=== PATIENT | female | born 1980 | race American Indian/Alaskan Native ===

== ENCOUNTER 2019-08-19 05:34 | Emergency (ER) | payer OTHER ==
--- NOTE | 2019-08-19 06:52 | Emergency Department Report ---
ED Chest Pain HPI - General Chief Complaint: Chest Pain Stated Complaint: CHEST PAIN Time Seen by Provider: 08/19/19 06:49 Source: patient Mode of arrival: Ambulatory Limitations: No Limitations - History of Present Illness Initial Comments: This is a 39 year old female who is very emotionally labile. She states that about 10 PM last night she developed a pain in her left to mid chest that feels like food got stuck. However she was not eating at the time. She does not have any difficulty in swallowing. She is a very limited historian and poorly c ooperative due to the above. She is quite anxious. She denies a family history of CAD or the VTE. She does smoke. She does not take a control pill. She states that she was recently placed on zonisamide. She states the other day she "had 8 seizures" but did not see a physician. She states she is never got to the emergency department for chest pain before. However the record does show a visit for chest pain in 2014 with outpatient disposition. MD Complaint: chest pain -: unknown Onset: during rest Pain Location: substernal, left chest Pain Radiation: none Severity: moderate, severe Quality: other Consistency: constant Improves With: nothing Worsens With: nothing re: other (anxiety) Other Symptoms: denies: cough, fever, syncope Treatments Prior to Arrival: none - Related Data Home Medications Medication Instructions Recorded Confirmed Last Taken Zonisamide 1 cap PO QHS 08/19/19 08/19/19 Unknown levETIRAcetam [Keppra TAB] 2 tab PO BID 08/19/19 08/19/19 Unknown Allergies Allergy/AdvReac Type Severity Reaction Status Date / Time No Known Allergies Allergy Verified 08/19/19 05:36 Heart Score - HEART Score History: Slightly suspicious EKG: Non-specific Age: < 45 Risk factors: No known risk factors Troponin: < normal limit HEART Score: 1 - Critical Actions Critical Actions: 0-3 pts:0.9-1.7%risk of adverse cardiac event.Candidate for discharge ED Review of Systems ROS: Stated complaint: CHEST PAIN Other details as noted in HPI Constitutional: denies: chills, fever Eyes: denies: eye pain, eye discharge, vision change ENT: denies: ear pain, throat pain Respiratory: denies: cough, shortness of breath, wheezing Cardiovascular: chest pain. denies: palpitations Endocrine: no symptoms reported Gastrointestinal: denies: abdominal pain, nausea, diarrhea Genitourinary: denies: urgency, dysuria, discharge Musculoskeletal: denies: back pain, joint swelling, arthralgia Skin: denies: rash, lesions Neurological: denies: headache, weakness, paresthesias Psychiatric: anxiety. denies: depression Hematological/Lymphatic: denies: easy bleeding, easy bruising ED Past Medical Hx - Past Medical History Previous Medical History?: Yes Hx Seizures: Yes - Surgical History Past Surgical History?: Yes Additional Surgical History: Tubal Ligation - Social History Smoking Status: Current Every Day Smoker Substance Use Type: None - Medications Home Medications: Home Medications Medication Instructions Recorded Confirmed Last Taken Type Zonisamide 1 cap PO QHS 08/19/19 08/19/19 Unknown History levETIRAcetam [Keppra TAB] 2 tab PO BID 08/19/19 08/19/19 Unknown History ED Physical Exam - General Limitations: No Limitations General appearance: in no apparent distress, anxious - Head Head exam: Present: atraumatic, normocephalic - Eye Eye exam: Present: normal appearance - ENT ENT exam: Present: mucous membranes moist - Neck Neck exam: Present: normal inspection - Respiratory Respiratory exam: Present: normal lung sounds bilaterally. Absent: respiratory distress - Cardiovascular Cardiovascular Exam: Present: normal rhythm, tachycardia. Absent: systolic murmur, diastolic murmur, rubs, gallop - GI/Abdominal GI/Abdominal exam: Present: soft, normal bowel sounds. Absent: distended, tenderness, guarding, rebound, rigid - Extremities Exam Extremities exam: Present: normal inspection, normal capillary refill. Absent: pedal edema, joint swelling, calf tenderness - Back Exam Back exam: Present: normal inspection - Neurological Exam Neurological exam: Present: alert, oriented X3, CN II-XII intact. Absent: motor sensory deficit - Psychiatric Psychiatric exam: Present: normal affect, normal mood, anxious - Skin Skin exam: Present: warm, dry, intact, normal color. Absent: rash ED Course Vital Signs 08/19/19 08/19/19 08/19/19 05:37 06:43 07:44 Temperature 98.7 F 98.7 F Pulse Rate 127 H 104 H 106 H Respiratory 18 16 14 Rate Blood Pressure 183/89 Blood Pressure 153/81 124/73 [Left] O2 Sat by Pulse 97 100 100 Oximetry 08/19/19 08/19/19 10:25 12:00 Temperature 98.1 F Pulse Rate 74 87 Respiratory 16 16 Rate Blood Pressure Blood Pressure 122/71 121/76 [Left] O2 Sat by Pulse 100 100 Oximetry - Reevaluation(s) Reevaluation #1: Respirations chest pain completely resolved with medication and did not recur. She stated she was ready for discharge. She is observed for quite some time and had no supplemental symptoms. 08/19/19 11:33 Reevaluation #2: Patient was found to have rhabdomyolysis. I believe this is likely secondary to zonisamide. She will be given 2 liters of fluid and the medication will be discontinued. She informs me that she wanted to stop the medicine anyway because it wasn't making her feel good. 08/19/19 11:41 DEYA score - Deya Score Age > 65: (0) No Aspirin use within the Past 7 Days: (0) No 3 or more CAD Risk Factors: (0) No 2 or more Angina events in past 24 hrs: (0) No Known CAD with more than 50% Stenosis: (0) No Elevated Cardiac Markers: (0) No ST Deviation Greater than 0.5mm: (0) No DEYA Score: 0 ED Medical Decision Making - Lab Data Result diagrams: 08/19/19 07:21 08/19/19 07:21 Laboratory Results - last 24 hr 08/19/19 08/19/19 08/19/19 07:21 07:21 07:21 WBC 10.9 RBC 4.51 Hgb 13.6 Hct 41.9 MCV 93 MCH 30 MCHC 33 RDW 14.1 Plt Count 345 Lymph % (Auto) 25.6 [place] % (Auto) 4.4 Eos % (Auto) 0.6 Baso % (Auto) 0.6 Lymph # 2.8 [place] # 0.5 Eos # 0.1 Baso # 0.1 Seg Neutrophils % 68.8 Seg Neutrophils # 7.5 PT 12.9 INR 1.00 APTT 25.6 D-Dimer 258.51 H Sodium 143 Potassium 4.2 Chloride 104.0 Carbon Dioxide 25 Anion Gap 18 BUN 4 L Creatinine 0.7 Estimated GFR > 60 BUN/Creatinine Ratio 6 Glucose 119 H Lactic Acid Calcium 9.7 CK-MB (CK-2) Troponin T < 0.010 NT-Pro-B Natriuret Pep Lipase 08/19/19 08/19/19 08/19/19 07:21 07:21 07:21 WBC RBC Hgb Hct MCV MCH MCHC RDW Plt Count Lymph % (Auto) [place] % (Auto) Eos % (Auto) Baso % (Auto) Lymph # [place] # Eos # Baso # Seg Neutrophils % Seg Neutrophils # PT INR APTT D-Dimer Sodium Potassium Chloride Carbon Dioxide Anion Gap BUN Creatinine Estimated GFR BUN/Creatinine Ratio Glucose Lactic Acid 1.40 Calcium CK-MB (CK-2) 1.3 Troponin T NT-Pro-B Natriuret Pep 18.23 Lipase 25 Laboratory Results - last 24 hr 08/19/19 08/19/19 08/19/19 07:21 07:21 07:21 WBC 10.9 RBC 4.51 Hgb 13.6 Hct 41.9 MCV 93 MCH 30 MCHC 33 RDW 14.1 Plt Count 345 Lymph % (Auto) 25.6 [place] % (Auto) 4.4 Eos % (Auto) 0.6 Baso % (Auto) 0.6 Lymph # 2.8 [place] # 0.5 Eos # 0.1 Baso # 0.1 Seg Neutrophils % 68.8 Seg Neutrophils # 7.5 PT INR APTT D-Dimer Sodium 143 Potassium 4.2 Chloride 104.0 Carbon Dioxide 25 Anion Gap 18 BUN 4 L Creatinine 0.7 Estimated GFR > 60 BUN/Creatinine Ratio 6 Glucose 119 H Lactic Acid Calcium 9.7 Total Creatine Kinase CK-MB (CK-2) CK-MB (CK-2) Rel Index Troponin T < 0.010 NT-Pro-B Natriuret Pep Lipase HCG, Qual Negative Urine Color Urine Turbidity Urine pH Ur Specific [place] Urine Protein Urine Glucose (UA) Urine Ketones Urine Blood Urine Nitrite Urine Bilirubin Urine Urobilinogen Ur Leukocyte Esterase Urine WBC (Auto) Urine RBC (Auto) U Epithel Cells (Auto) Urine Bacteria (Auto) Urine Opiates Screen Urine Methadone Screen Ur Barbiturates Screen Ur Phencyclidine Scrn Ur Amphetamines Screen U Benzodiazepines Scrn Urine Cocaine Screen U Marijuana (THC) Screen Drugs of Abuse Note 08/19/19 08/19/19 08/19/19 07:21 07:21 07:21 WBC RBC Hgb Hct MCV MCH MCHC RDW Plt Count Lymph % (Auto) [place] % (Auto) Eos % (Auto) Baso % (Auto) Lymph # [place] # Eos # Baso # Seg Neutrophils % Seg Neutrophils # PT 12.9 INR 1.00 APTT 25.6 D-Dimer 258.51 H Sodium Potassium Chloride Carbon Dioxide Anion Gap BUN Creatinine Estimated GFR BUN/Creatinine Ratio Glucose Lactic Acid 1.40 Calcium Total Creatine Kinase CK-MB (CK-2) CK-MB (CK-2) Rel Index Troponin T NT-Pro-B Natriuret Pep Lipase 25 HCG, Qual Urine Color Urine Turbidity Urine pH Ur Specific [place] Urine Protein Urine Glucose (UA) Urine Ketones Urine Blood Urine Nitrite Urine Bilirubin Urine Urobilinogen Ur Leukocyte Esterase Urine WBC (Auto) Urine RBC (Auto) U Epithel Cells (Auto) Urine Bacteria (Auto) Urine Opiates Screen Urine Methadone Screen Ur Barbiturates Screen Ur Phencyclidine Scrn Ur Amphetamines Screen U Benzodiazepines Scrn Urine Cocaine Screen U Marijuana (THC) Screen Drugs of Abuse Note 08/19/19 08/19/19 08/19/19 07:21 07:54 07:54 WBC RBC Hgb Hct MCV MCH MCHC RDW Plt Count Lymph % (Auto) [place] % (Auto) Eos % (Auto) Baso % (Auto) Lymph # [place] # Eos # Baso # Seg Neutrophils % Seg Neutrophils # PT INR APTT D-Dimer Sodium Potassium Chloride Carbon Dioxide Anion Gap BUN Creatinine Estimated GFR BUN/Creatinine Ratio Glucose Lactic Acid Calcium Total Creatine Kinase 4109 H CK-MB (CK-2) 1.3 CK-MB (CK-2) Rel Index 0.0 Troponin T NT-Pro-B Natriuret Pep 18.23 Lipase HCG, Qual Urine Color Straw Urine Turbidity Clear Urine pH 9.0 H Ur Specific [place] 1.003 Urine Protein <15 mg/dl Urine Glucose (UA) Neg Urine Ketones Neg Urine Blood Neg Urine Nitrite Neg Urine Bilirubin Neg Urine Urobilinogen < 2.0 Ur Leukocyte Esterase Mod Urine WBC (Auto) 5.0 Urine RBC (Auto) 1.0 U Epithel Cells (Auto) 2.0 Urine Bacteria (Auto) 1+ Urine Opiates Screen Presumptive negative Urine Methadone Screen Presumptive negative Ur Barbiturates Screen Presumptive negative Ur Phencyclidine Scrn Presumptive negative Ur Amphetamines Screen Presumptive negative U Benzodiazepines Scrn Presumptive negative Urine Cocaine Screen Presumptive negative U Marijuana (THC) Screen Presumptive positive Drugs of Abuse Note Disclamer - EKG Data -: EKG Interpreted by Me EKG shows normal: sinus rhythm Rate: tachycardia - EKG Data Interpretation: nonspecific ST-T wave shawna, LVH (c), other (consider biatrial abn) Consider 08/19/19 06:51 Critical care attestation.: If time is entered above; I have spent that time in minutes in the direct care of this critically ill patient, excluding procedure time. ED Disposition Clinical Impression: Atypical chest pain Rhabdomyolysis Qualifiers: Rhabdomyolysis type: non-traumatic Qualified Code(s): M62.82 - Rhabdomyolysis Disposition: DC-01 TO HOME OR SELFCARE Is pt being admited?: No Does the pt Need Aspirin: No Condition: Stable Instructions: Chest Pain (ED), Rhabdomyolysis (ED) Additional Instructions: Increase fluids. Follow up with the usual physicians. See additional referral to flight communications operator. Return any acute change or problems. Discontinue your Zonisamide medication. Referrals: PRIMARY CARE, [Primary Care Provider] - 3-5 Days Time of Disposition: 13:14
[2019-08-19] MEDS ORDERED: MORPHINE 2 MG/1 ML INJ IV ONE (07:11)
[2019-08-19] MEDS ORDERED: ONDANSETRON 4 MG/2 ML INJ IV ONE (07:11)
[2019-08-19] MEDS ORDERED: LORazepam 2 MG/ML VIAL IV ONE (07:11)
--- NOTE | 2019-08-19 07:13 | XRay Report ---
CHEST 1 VIEW 08/19/2019 6:54 AM INDICATION / CLINICAL INFORMATION: Chest Pain. COMPARISON: None available. FINDINGS: SUPPORT DEVICES: None. HEART / MEDIASTINUM: No significant abnormality. LUNGS / PLEURA: No significant pulmonary or pleural abnormality. No pneumothorax. ADDITIONAL FINDINGS: No significant additional findings. IMPRESSION: 1. No acute findings. Signer Name: Sriram Lara MD Signed: 08/19/2019 7:09 AM Workstation Name: [id number]
[2019-08-19 07:44] LABS: Basophils # (Auto) 0.1 K/mm3 (0.0-0.1); Basophils % (Auto) 0.6 % (0.0-1.8); Eosinophils # (Auto) 0.1 K/mm3 (0.0-0.4); Eosinophils % (Auto) 0.6 % (0.0-4.3); Hematocrit 41.9 % (30.3-42.9); Hemoglobin 13.6 gm/dl (10.1-14.3); Lymphocytes # (Auto) 2.8 K/mm3 (1.2-5.4); Lymphocytes % (Auto) 25.6 % (13.4-35.0); Mean Corpuscular HGB Conc 33 % (30-34); Mean Corpuscular Volume 93 fl (79-97); Monocytes # (Auto) 0.5 K/mm3 (0.0-0.8); Monocytes % (Auto) 4.4 % (0.0-7.3); Platelet Count 345 K/mm3 (140-440); Red Blood Count 4.51 M/mm3 (3.65-5.03); Red Cell Distribution Width 14.1 % (13.2-15.2)
[2019-08-19 07:52] LABS: Partial Thromboplastin Time 25.6 Sec. (24.2-36.6)
[2019-08-19 08:01] LABS: BUN/Creatinine Ratio 6; Blood Urea Nitrogen 4 mg/dL (7-17); Calcium 9.7 mg/dL (8.4-10.2); Hemolysis Index 27
[2019-08-19 08:03] LABS: Creatine Kinase MB 1.3 ng/mL (0.0-4.0)
[2019-08-19 08:29] LABS: Bacteria,Urine 1+ /HPF (Negative); Bilirubin,Urine NEG (Negative); Blood,Urine NEG (Negative); Color,Urine Straw (Yellow); Protein,Urine <15 mg/dL mg/dL (Negative); Urobilinogen,Urine < 2.0 mg/dL (<2.0)
[2019-08-19 08:38] LABS: Amphetamine Screen,Urine PRESUMPTIVE NEGATIVE; Benzodiazepines Screen,Urine PRESUMPTIVE NEGATIVE; Cocaine Screen,Urine PRESUMPTIVE NEGATIVE; Methadone Screen,Urine PRESUMPTIVE NEGATIVE; Opiate Screen,Urine PRESUMPTIVE NEGATIVE
[2019-08-19 08:51] LABS: Cannabinoid Screen,Urine PRESUMPTIVE POSITIVE
--- NOTE | 2019-08-19 09:16 | Cat Scan Report ---
CTA CHEST WITH IV CONTRAST INDICATION: MAIN: chest pain slightly elevated d-dimer X 4 HOURS. TECHNIQUE: Axial CT images were obtained through the chest after injection of IV contrast. 3 plane MIP reconstru ctions were produced. All CT scans at this location are performed using CT dose reduction for ALARA b y means of automated exposure control. COMPARISON: No prior CTs. FINDINGS: Pulmonary Arteries: No pulmonary emboli. Thoracic Aorta: No acute abnormality. Heart: Normal. Coronary Arteries: No significant calcification. Lungs: No acute air space or interstitial disease. Pleura: No pleural effusion. No pneumothorax. Lymph Nodes: No significant adenopathy. Additional Findings: None. Upper Abdomen: No acute findings. Skeletal Structures: No significant osseous abnormality. IMPRESSION: 1. No CT evidence for pulmonary embolism. 2. No acute findings. Signer Name: Daniel Campbell MD Signed: 08/19/2019 9:11 AM Workstation Name: [id number]
[2019-08-19] MEDS ORDERED: SODIUM CHLORIDE 0.9% 1000 ML 1,000 ML IV ONE ×2 (11:35)
[2019-08-19 14:53] VITALS: BP 142/78
== END 2019-08-19 15:56 | disposition home or self-care (01) ==
LOC: ED 05:34
DX: R07.89 Other chest pain (principal); M62.82 Rhabdomyolysis; F17.200 Nicotine dependence, unspecified, uncomplicated; Z98.51 Tubal ligation status; Z79.899 Other long term (current) drug therapy
CPT/HCPCS: 36415; 71045; 71275; 80048; 80307; 81001; 82140; 82550; 82553; 83690; 83880; 84484; 84703; 85025; 85379; 85610; 85730; 93005; 93010; 96361; 96374; 96375; 99285; J2060; J2270; J2405; J7030; Q9967

== ENCOUNTER 2020-08-27 22:43 | Emergency (ER) | payer OTHER ==
[2020-08-28 00:25] LABS: Basophils # (Auto) 0.2 K/mm3 (0.0-0.1); Basophils % (Auto) 1.2 % (0.0-1.8); Eosinophils % (Auto) 0.2 % (0.0-4.3); Hematocrit 39.5 % (30.3-42.9); Hemoglobin 13.4 gm/dl (10.1-14.3); Lymphocytes # (Auto) 2.5 K/mm3 (1.2-5.4); Lymphocytes % (Auto) 19.2 % (13.4-35.0); Mean Corpuscular HGB Conc 34 % (30-34); Mean Corpuscular Volume 96 fl (79-97); Monocytes # (Auto) 0.5 K/mm3 (0.0-0.8); Monocytes % (Auto) 4.1 % (0.0-7.3); Platelet Count 376 K/mm3 (140-440); Red Blood Count 4.11 M/mm3 (3.65-5.03); Red Cell Distribution Width 13.9 % (13.2-15.2)
[2020-08-28 00:43] LABS: Alanine Aminotransferase 10 units/L (7-56); Albumin 4.4 g/dL (3.9-5); Blood Urea Nitrogen 6 mg/dL (7-17); Calcium 9.2 mg/dL (8.4-10.2); Hemolysis Index 71
[2020-08-28 00:46] LABS: BUN/Creatinine Ratio 9
[2020-08-28 02:08] LABS: Bacteria,Urine 1+ /HPF (Negative); Bilirubin,Urine NEG (Negative); Blood,Urine NEG (Negative); Color,Urine Yellow (Yellow); Mucus,Urine FEW /HPF; Protein,Urine <15 mg/dL mg/dL (Negative)
[2020-08-28] MEDS ORDERED: ONDANSETRON 4 MG/2 ML INJ IV ONE (03:46)
[2020-08-28] MEDS ORDERED: SODIUM CHLORIDE 0.9% 1000 ML 1,000 ML IV ONE (03:46)
--- NOTE | 2020-08-28 04:17 | Emergency Department Report ---
ED N/V/D HPI - General Chief complaint: Weakness Stated complaint: WEAKNESS/FATIGUE PUI?: No Time Seen by Provider: 08/28/20 03:27 Source: patient Mode of arrival: Ambulatory Limitations: No Limitations - History of Present Illness Initial comments: This is a 40-year-old female with history of seizure disorder who presents with lightheadedness vomiting for the past day. She is concerned for food poisoning. She ate fast food from [employer] recently. She denies headache. She denies fever. Denies chest pain. Denies abdominal pain. She is concerned for dehydration. She has lightheadedness with standing and ambulation. She is also concerned for COVID-19 infection. She had 3 seizures on Saturday. She missed her doses of antiepileptic medication for 2 days. She takes Keppra and oxcarbazepine. She does not take Depakote, nor does she take Dilantin. MD complaint: nausea, vomiting -: Gradual, days(s) (1) Description of Vomiting: food contents Associated Abdominal Pain: No Severity: moderate Consistency: now resolved Improves with: none Worsens with: movement Context: possible food poisoning Associated Symptoms: denies other symptoms - Related Data Home Medications Medication Instructions Recorded Confirmed Last Taken Zonisamide 1 cap PO QHS 08/19/19 08/19/19 Unknown levETIRAcetam [Keppra TAB] 2 tab PO BID 08/19/19 08/19/19 Unknown Previous Rx's Medication Instructions Recorded Last Taken Type Promethazine [Phenergan] 25 mg PO Q6HR PRN #10 tab 08/28/20 Unknown Rx Allergies Allergy/AdvReac Type Severity Reaction Status Date / Time No Known Allergies Allergy Verified 08/19/19 05:36 ED Review of Systems ROS: Stated complaint: WEAKNESS/FATIGUE Other details as noted in HPI Comment: All other systems reviewed and negative Constitutional: denies: chills, fever, malaise Respiratory: denies: cough, shortness of breath Gastrointestinal: nausea, vomiting. denies: abdominal pain, diarrhea ED Past Medical Hx - Past Medical History Previous Medical History?: Yes Hx Seizures: Yes - Surgical History Past Surgical History?: Yes Additional Surgical History: Tubal Ligation - Social History Smoking Status: Never Smoker Substance Use Type: None - Medications Home Medications: Home Medications Medication Instructions Recorded Confirmed Last Taken Type Zonisamide 1 cap PO QHS 08/19/19 08/19/19 Unknown History levETIRAcetam [Keppra TAB] 2 tab PO BID 08/19/19 08/19/19 Unknown History Promethazine [Phenergan] 25 mg PO Q6HR PRN #10 tab 08/28/20 Unknown Rx ED Physical Exam - General Limitations: No Limitations General appearance: alert, in no apparent distress - Head Head exam: Present: atraumatic, normocephalic - Eye Eye exam: Present: normal appearance - ENT ENT exam: Present: mucous membranes moist - Neck Neck exam: Present: normal inspection, full ROM - Respiratory Respiratory exam: Present: normal lung sounds bilaterally. Absent: respiratory distress, wheezes, rales, rhonchi - Cardiovascular Cardiovascular Exam: Present: regular rate, normal rhythm, normal heart sounds. Absent: systolic murmur, diastolic murmur, rubs, gallop - GI/Abdominal GI/Abdominal exam: Present: soft, normal bowel sounds. Absent: distended, tenderness, guarding, rebound - Extremities Exam Extremities exam: Present: normal inspection - Neurological Exam Neurological exam: Present: alert, oriented X3 - Psychiatric Psychiatric exam: Present: normal affect, normal mood - Skin Skin exam: Present: warm, dry, intact, normal color. Absent: rash ED Course Vital Signs 08/27/20 08/28/20 08/28/20 23:45 03:50 04:00 Temperature 98.5 F 98.6 F Pulse Rate 85 78 79 Respiratory 16 19 21 Rate Blood Pressure 154/78 165/82 Blood Pressure 154/83 [Left] O2 Sat by Pulse 97 99 98 Oximetry 08/28/20 08/28/20 08/28/20 04:15 04:30 04:45 Temperature Pulse Rate 76 70 80 Respiratory 20 19 21 Rate Blood Pressure 164/75 160/83 160/73 Blood Pressure [Left] O2 Sat by Pulse 99 100 98 Oximetry 08/28/20 05:00 Temperature Pulse Rate 79 Respiratory 24 Rate Blood Pressure 148/73 Blood Pressure [Left] O2 Sat by Pulse 98 Oximetry ED Medical Decision Making - Lab Data Result diagrams: 08/27/20 23:59 08/27/20 23:59 Laboratory Results - last 24 hr 08/27/20 08/27/20 08/27/20 Unknown 23:59 23:59 WBC 13.1 H RBC 4.11 Hgb 13.4 Hct 39.5 MCV 96 MCH 33 H MCHC 34 RDW 13.9 Plt Count 376 Lymph % (Auto) 19.2 [place] % (Auto) 4.1 Eos % (Auto) 0.2 Baso % (Auto) 1.2 Lymph # (Auto) 2.5 [place] # (Auto) 0.5 Eos # (Auto) 0.0 Baso # (Auto) 0.2 H Seg Neutrophils % 75.3 H Seg Neutrophils # 9.8 H Sodium 140 Potassium 3.9 Chloride 99.9 Carbon Dioxide 26 Anion Gap 18 BUN 6 L Creatinine 0.7 Estimated GFR > 60 BUN/Creatinine Ratio 9 Glucose 126 H Calcium 9.2 Total Bilirubin < 0.20 AST 16 ALT 10 Alkaline Phosphatase 108 Total Protein 7.6 Albumin 4.4 Albumin/Globulin Ratio 1.4 Lipase 24 HCG, Qual Urine Color Yellow Urine Turbidity Clear Urine pH 7.0 Ur Specific [place] 1.025 Urine Protein <15 mg/dl Urine Glucose (UA) Neg Urine Ketones Neg Urine Blood Neg Urine Nitrite Neg Urine Bilirubin Neg Urine Urobilinogen 2.0 Ur Leukocyte Esterase Sm Urine WBC (Auto) 14.0 H Urine RBC (Auto) 7.0 U Epithel Cells (Auto) 5.0 Urine Bacteria (Auto) 1+ Urine Mucus Few 08/27/20 23:59 WBC RBC Hgb Hct MCV MCH MCHC RDW Plt Count Lymph % (Auto) [place] % (Auto) Eos % (Auto) Baso % (Auto) Lymph # (Auto) [place] # (Auto) Eos # (Auto) Baso # (Auto) Seg Neutrophils % Seg Neutrophils # Sodium Potassium Chloride Carbon Dioxide Anion Gap BUN Creatinine Estimated GFR BUN/Creatinine Ratio Glucose Calcium Total Bilirubin AST ALT Alkaline Phosphatase Total Protein Albumin Albumin/Globulin Ratio Lipase HCG, Qual Negative Urine Color Urine Turbidity Urine pH Ur Specific [place] Urine Protein Urine Glucose (UA) Urine Ketones Urine Blood Urine Nitrite Urine Bilirubin Urine Urobilinogen Ur Leukocyte Esterase Urine WBC (Auto) Urine RBC (Auto) U Epithel Cells (Auto) Urine Bacteria (Auto) Urine Mucus - Medical Decision Making This is a 40-year-old female with history of seizure disorder presents with lightheadedness and vomiting for 1 day. She denies fever abdominal pain or diarrhea. She denies cough shortness of breath. Next Isolated vomiting with lightheadedness attributed to viral syndrome versus food poisoning. With lack of concomitant symptoms, I do not suspect COVID-19 infection although it is a possibility. She understands to self isolate self quarantine if she develops additional symptoms. Patient received IV fluid therapy for lightheadedness, presumed dehydration. Work-up notable for mild leukocytosis chemistry unremarkable. No sirs criteria to indicate sepsis or acute inflammatory process. Symptoms greatly improved after receiving IV fluid therapy. She expressed depression and frustration with her epilepsy diagnosis. She has been unable to work since 2016. She is followed by [facility] neurologist. She has taken SSRI for depression symptoms. However the medication makes her dizzy. She denies suicidal ideation. I encouraged her to obtain a primary care physician which will help her with the plan of care. Also encouraged her to advocate for her independence by having a nathan discussion with her seizure specialist. She understands that she is unable to drive. She really wants to work. She wants "my life back". Critical care attestation.: If time is entered above; I have spent that time in minutes in the direct care of this critically ill patient, excluding procedure time. ED Disposition Clinical Impression: Viral syndrome, Food poisoning Disposition: DC-01 TO HOME OR SELFCARE Is pt being admited?: No Does the pt Need Aspirin: No Condition: Stable Instructions: Food Poisoning (ED), Dizziness (ED) Prescriptions: Promethazine [Phenergan] 25 mg PO Q6HR PRN #10 tab PRN Reason: Nausea Referrals: CHAR WALTERS MD [Staff Physician] - as needed
[2020-08-28 05:12] VITALS: BP 148/73
== END 2020-08-28 05:00 | disposition home or self-care (01) ==
LOC: ED 22:43
DX: B34.9 Viral infection, unspecified (principal); A05.9 Bacterial foodborne intoxication, unspecified; R56.9 Unspecified convulsions; Z98.51 Tubal ligation status; Z79.899 Other long term (current) drug therapy
CPT/HCPCS: 36415; 80053; 81001; 83690; 84703; 85025; 87086; 96361; 96374; 99283; J2405; J7030

== ENCOUNTER 2021-04-25 15:15 | Emergency (ER) | payer OTHER ==
[2021-04-25] MEDS ORDERED: SODIUM CHLORIDE 0.9% 1000 ML 1,000 ML IV ONE ×2 (16:35→16:41)
--- NOTE | 2021-04-25 16:38 | Emergency Department Report ---
HPI - General Chief Complaint: Seizure Time Seen by Provider: 04/25/21 15:44 - HPI HPI: 40-year-old female with seizure disorder on Keppra and zonisamide presents after she apparently had 4 convulsive seizures overnight. The patient states that she normally has approximately 3 seizures per month. She has been compliant with all of her prescribed antiepileptic medications. She has had no recent physical symptoms or complaints other than when she woke up this morning she felt very sore throughout her body and took tylenol. Her boyfriend told her that she had 4 seizures over the course of the night but he did not know the length of each episode. The patient reports that she did bite her tongue but has no active bleeding. The patient states that she is scheduled for some kind of surgery on her head at [place] to address what ever is causing her seizures but she does not know her exact diagnosis. She denies any recent visual change, neck stiffness, fever/chills, chest pain, shortness of breath, abdominal pain, nausea/vomiting, or any other complaints. ED Past Medical Hx - Past Medical History Previous Medical History?: Yes Hx Seizures: Yes - Surgical History Past Surgical History?: Yes Additional Surgical History: Tubal Ligation - Social History Smoking Status: Never Smoker Substance Use Type: None - Medications Home Medications: Home Medications Medication Instructions Recorded Confirmed Last Taken Type Zonisamide 4 cap PO QHS 08/19/19 04/25/21 Unknown History levETIRAcetam [Keppra TAB] 2 tab PO BID 08/19/19 04/25/21 Unknown History Promethazine [Phenergan] 25 mg PO Q6HR PRN #10 tab 08/28/20 Unknown Rx OXcarbazepine [Trileptal] 1,200 mg PO BID 04/25/21 04/25/21 Unknown History ED Review of Systems ROS: Stated complaint: SEIZURE Other details as noted in HPI Physical Exam - Physical Exam Vital Signs: Vital Signs 04/25/21 15:21 Temperature 99.6 F Pulse Rate 109 H Respiratory 17 Rate Blood Pressure 107/86 [Right] O2 Sat by Pulse 98 Oximetry General: GENERAL: Well developed. Well nourished. No acute distress HEENT: Normocephalic. No obvious contusions, abrasions, lacerations, or other signs of trauma. Moist mucous membranes. EYES: Extraocular movements are intact. Pupils are equal round and reactive to light bilaterally NECK: Supple. Trachea is midline. LUNGS: Nonlabored breathing. Equal chest rise bilaterally. Clear to auscultation bilaterally. HEART/CARDIOVASCULAR: Regular rate and rhythm. No murmurs or rubs. ABDOMEN: Abdomen is soft and nondistended. Normal bowel sounds. No significant tenderness, guarding or rebound. SKIN: Skin is warm and dry NEURO: Patient is awake, alert, and oriented. No focal deficits. Normal motor and sensory exam throughout. Normal speech. Normal gait. MUSCULOSKELETAL: Normal ROM throughout. There is mild tenderness of the large muscles of the proximal extremities. There are no deformities. There is no bony tenderness. No significant limitation of range of motion. No joint tenderness. BACK/SPINE: No midline tenderness or step-offs of the C/T/L spine. ED Course Vital Signs 04/25/21 15:21 Temperature 99.6 F Pulse Rate 109 H Respiratory 17 Rate Blood Pressure 107/86 [Right] O2 Sat by Pulse 98 Oximetry ED Medical Decision Making - Lab Data Result diagrams: 04/25/21 16:39 04/25/21 16:39 Laboratory Results - last 24 hr 04/25/21 04/25/21 04/25/21 16:00 16:39 16:39 WBC 9.5 RBC 4.26 Hgb 14.0 Hct 40.7 MCV 96 MCH 33 H MCHC 35 H RDW 13.6 Plt Count 316 Lymph % (Auto) 24.6 [place] % (Auto) 7.1 Eos % (Auto) 0.1 Baso % (Auto) 0.5 Lymph # (Auto) 2.3 [place] # (Auto) 0.7 Eos # (Auto) 0.0 Baso # (Auto) 0.0 Seg Neutrophils % 67.7 Seg Neutrophils # 6.4 Sodium 137 Potassium 3.6 Chloride 102.4 Carbon Dioxide 26 Anion Gap 12 BUN 7 Creatinine 0.6 Estimated GFR > 60 BUN/Creatinine Ratio 12 Glucose 82 Calcium 9.1 Magnesium 1.90 Total Bilirubin 0.20 Direct Bilirubin < 0.2 Indirect Bilirubin 0.0 AST 14 ALT 11 Alkaline Phosphatase 114 Total Creatine Kinase 226 H Total Protein 7.3 Albumin 4.4 Albumin/Globulin Ratio 1.5 HCG, Quant < 2 - Medical Decision Making 40-year-old female with history of seizure disorder on 3 antiepileptic medications presents after she had 4 convulsive seizures overnight. Patient typically has 3 seizures per month. She is compliant with her medications. On initial assessment, the patient is afebrile and with normal vital signs with the exception of mildly elevated heart rate. She is in no acute distress. She is alert and oriented x4 and has a nonfocal neurologic exam. Physical examination reveals only tenderness in the muscles of her extremities which she attributes to her seizures. Review of the patient's medical chart reveals that in the past she has suffered from rhabdomyolysis. We will send a full set of labs including CBC, CMP, and CK levels. We will give 1 L of IV fluids. We will consult the patient's neurologist, Dr. Libra Guevara for further recommendations. Given that the patient states she has had extensive work-up with the [facility] system including an MRI and is supposed to be scheduled for some type of surgery we will wait to hear from her neurologist before ordering head imaging at this time. We will continue to monitor the patient for any signs of further seizures. At 4:45 PM the patient remained stable with no further episodes. Repeat assessment at 5:43 PM, the patient remains without any further symptoms or episodes. Labs returned and reveal no leukocytosis no significant electrolyte abnormality and only mildly elevated CK of 226. The patient's neurologist has been consulted and we are waiting for callback. At 6 PM, the patient reports that she has a mild headache and requests Tylenol. She states that this is not at all out of the ordinary for her seizures. In addition, we will give her afternoon doses of Keppra and oxcarbazepine. At 6:42 PM I spoke with Dr. Trujillo from [facility] who is covering for the patient's neurologist, Dr. Guevara. We discussed details of the case including the patient's normal laboratory findings. She reviewed the patient's most recent records and confirm that the patient is taking the correct doses of her antiepileptic medications. She agrees with the plan to to discharge the patient home recommends that the patient call the office tomorrow to schedule close follow-up. All of this was discussed with the patient who expressed understanding and agreement with this plan of care Critical care attestation.: If time is entered above; I have spent that time in minutes in the direct care of this critically ill patient, excluding procedure time. ED Disposition Clinical Impression: Seizure, Seizure disorder Disposition: DC-01 TO HOME OR SELFCARE Is pt being admited?: No Condition: Stable Instructions: Epilepsy, Seizure, Adult Referrals: PRIMARY CARE, [Primary Care Provider] - 3-5 Days libra guevara [Other] - 3-5 Days (Please call the office in the morning to schedule a follow up appointment)
[2021-04-25] MEDS ORDERED: METOCLOPRAMIDE 10 MG/2 ML INJ IV ONE (16:40)
[2021-04-25 17:07] LABS: Basophils % (Auto) 0.5 % (0.0-1.8); Eosinophils % (Auto) 0.1 % (0.0-4.3); Hematocrit 40.7 % (30.3-42.9); Lymphocytes # (Auto) 2.3 K/mm3 (1.2-5.4); Lymphocytes % (Auto) 24.6 % (13.4-35.0); Mean Corpuscular HGB Conc 35 % (30-34); Mean Corpuscular Volume 96 fl (79-97); Monocytes # (Auto) 0.7 K/mm3 (0.0-0.8); Monocytes % (Auto) 7.1 % (0.0-7.3); Platelet Count 316 K/mm3 (140-440); Red Blood Count 4.26 M/mm3 (3.65-5.03); Red Cell Distribution Width 13.6 % (13.2-15.2)
[2021-04-25 17:22] LABS: Alanine Aminotransferase 11 units/L (7-56); Albumin 4.4 g/dL (3.9-5); Blood Urea Nitrogen 7 mg/dL (7-17); Calcium 9.1 mg/dL (8.4-10.2); Hemolysis Index 3
[2021-04-25 17:23] LABS: BUN/Creatinine Ratio 12; Bilirubin,Direct < 0.2 mg/dL (0-0.2)
[2021-04-25] MEDS ORDERED: ACETAMINOPHEN 500 MG TAB PO ONE (17:55)
[2021-04-25] MEDS ORDERED: OXcarbazepine 300 MG TAB PO ONE (17:56)
[2021-04-25] MEDS ORDERED: levETIRAcetam 500 MG TAB PO ONE (17:57)
[2021-04-25 20:28] VITALS: BP 133/81
== END 2021-04-25 20:27 | disposition home or self-care (01) ==
LOC: ED 15:15
DX: G40.909 Epilepsy, unspecified, not intractable, without status epilepticus (principal); Z98.51 Tubal ligation status; Z79.899 Other long term (current) drug therapy
CPT/HCPCS: 36415; 80048; 80076; 82550; 83735; 84702; 85025; 96360; 99283; J7030